=== PATIENT | female | born 1945 | race African-American/Black ===

== ENCOUNTER 2017-02-11 18:49 | Emergency (ER) | payer OTHER ==
[~2017-02-11] VITALS: Ht 160 cm; Wt 80.8 kg
[~2017-02-11 18:49] MED LIST: CENTRUM SILVER1 EAC3 PO; CIPRO500 MG PO; CLARINEX5 MG PO; DILAUDID PO; DILAUDID2 MG PO; FLONASE16 G1 BOTH NARES; HYDROCHLOROTHIA25 MG PO; K-DUR10 MEQ PO; LIDEX 0.05% OIN15 GM TP; LOW DOSE ASPIRI81 M1 PO; METFORMIN HCL500 MG PO; METOPROLOL TAR100 MG PO; OMEPRAZOLE40 M1 PO; PLAVIX75 MG PO; PYRIDIUM200 MG PO; SIMVASTATIN40 MG PO; TORADOL10 MG PO; TRAMADOL HCL50 MG PO
[2017-02-11] MEDS ORDERED: PERCOCET 5/31 TABLET PO (20:00)
[2017-02-11 20:36] VITALS: BP 113/87
== END 2017-02-11 20:36 | disposition home or self-care (01) ==
LOC: EME 18:49
DX: S76.112A Strain of left quadriceps muscle, fascia and tendon, initial encounter (principal); X58.XXXA Exposure to other specified factors, initial encounter; R10.2 Pelvic and perineal pain; I10 Essential (primary) hypertension; E78.5 Hyperlipidemia, unspecified; E11.9 Type 2 diabetes mellitus without complications; Z79.4 Long term (current) use of insulin; Z79.02 Long term (current) use of antithrombotics/antiplatelets; Z79.82 Long term (current) use of aspirin; Z86.73 Personal history of transient ischemic attack (TIA), and cerebral infarction without residual deficits; Z87.891 Personal history of nicotine dependence
CPT/HCPCS: 72170; 99281; 99283

== ENCOUNTER 2017-03-20 09:28 | Emergency (ER) | payer OTHER ==
[~2017-03-20] VITALS: Ht 160 cm; Wt 80.0 kg
[~2017-03-20 09:28] MED LIST changes: +PERCOCET 5/31 TABLET PO
[2017-03-20 09:42] VITALS: BP 139/74
== END 2017-03-20 11:47 | disposition home or self-care (01) ==
LOC: EME 09:28
DX: S93.401A Sprain of unspecified ligament of right ankle, initial encounter (principal); X58.XXXA Exposure to other specified factors, initial encounter; J02.9 Acute pharyngitis, unspecified; I10 Essential (primary) hypertension; E78.5 Hyperlipidemia, unspecified; E11.9 Type 2 diabetes mellitus without complications; Z79.84 Long term (current) use of oral hypoglycemic drugs; Z79.02 Long term (current) use of antithrombotics/antiplatelets; Z79.82 Long term (current) use of aspirin; Z95.5 Presence of coronary angioplasty implant and graft
CPT/HCPCS: 73610; 99281; 99284

== ENCOUNTER 2017-07-08 12:37 | Emergency (ER) | payer OTHER ==
[~2017-07-08] VITALS: Ht 160 cm; Wt 81.4 kg
[2017-07-08] MEDS ORDERED: NITROFURANTOIN100 M3 PO (13:23)
[2017-07-08 13:33] LABS: MCH 30.8 PG (29.0-34.0); MCHC 33.4 G/DL (30.0-36.0); MCV 92.1 FL (83-99); MEAN PLAT.VOLUME 10.1 uM^3 (9.5-12.4); PLATELET COUNT 204 K/uL (156-360); RBC DIS.WIDTH-CV 13.5 % (11.8-14.6); WHITE BLOOD COUNT 8.9 K/uL (4.1-10.2)
[2017-07-08 13:52] LABS: ANION GAP 9 MEQ/L (2-14); CHLORIDE 100 MEQ/L (99-109); POTASSIUM 4.3 MEQ/L (3.7-5.4); SAMPLE HEMOLYSIS CHECK 0; SAMPLE ICTERIC CHECK 0; SAMPLE LIPEMIA CHECK 0; SODIUM 137 MEQ/L (136-147); TOTAL BILIRUBIN 0.9 MG/DL (0.0-1.0)
[2017-07-08 13:58] LABS: ALKALINE PHOSPHATASE 67 IU/L (3-129); GFR ESTIMATE (CALCULATED) > 59 mL/min/; GLUCOSE 201 mg/dL (70-99); UREA NITROGEN (BUN) 17 mg/dL (9-23)
[2017-07-08 15:06] LABS: ADD MIUA? NO; BILIRUBIN NEGATIVE; BLOOD NEGATIVE; COLOR YELLOW ((YELLOW)); GLUCOSE (STRIP) NEGATIVE; KETONES NEGATIVE; LEUKOCYTES NEGATIVE; NITRITE NEGATIVE; PROTEIN (STRIP) NEGATIVE; SPECIFIC GRAVITY 1.015 (1.000-1.030); UCUL ADDED? NO
[2017-07-08 15:32] LABS: LIPASE 25 U/L (1.0-51.0)
[2017-07-08] MEDS ORDERED: TRAMADOL HCL50 MG PO (18:05)
[2017-07-08 18:14] VITALS: BP 156/78
== END 2017-07-08 18:15 | disposition home or self-care (01) ==
LOC: EME 12:37
DX: R10.11 Right upper quadrant pain (principal); R11.2 Nausea with vomiting, unspecified; R19.7 Diarrhea, unspecified; E11.65 Type 2 diabetes mellitus with hyperglycemia; I10 Essential (primary) hypertension; E78.5 Hyperlipidemia, unspecified; I25.2 Old myocardial infarction; K21.9 Gastro-esophageal reflux disease without esophagitis; D64.9 Anemia, unspecified; Z79.02 Long term (current) use of antithrombotics/antiplatelets; Z79.82 Long term (current) use of aspirin; Z79.84 Long term (current) use of oral hypoglycemic drugs; Z88.8 Allergy status to other drugs, medicaments and biological substances
CPT/HCPCS: 74177; 80053; 81003; 83690; 85027; 93005; 99281; 99285; J1200; J2405; J2930; J3010; J7030

== ENCOUNTER 2017-08-29 13:22 | Emergency (ER) | payer OTHER ==
[~2017-08-29] VITALS: Ht 160 cm; Wt 83.4 kg
[~2017-08-29 13:22] MED LIST changes: +NITROFURANTOIN100 M3 PO
[2017-08-29 14:43] LABS: BASOPHIL (%) 0.5 % (0-1); EOSINOPHIL (%) 2.9 % (0-5); EOSINOPHIL COUNT 0.1 K/uL (0-0.3); HEMATOCRIT 34.4 % (36.0-46.0); HEMOGLOBIN 11.7 G/DL (11.9-15.5); IMMATURE GRANULOCYTE (%) 0.2 % (0.0-0.7); LYMPHOCYTE (%) 45.9 % (15-42); MONOCYTE (%) 10.1 % (3-12); MONOCYTE COUNT 0.5 K/uL (0-0.8); NEUTROPHIL (%) 40.4 % (45-76); NEUTROPHIL COUNT 1.8 K/uL (1.8-6.4); PLATELET COUNT 214 K/uL (156-360); RBC DIS.WIDTH-CV 13.3 % (11.8-14.6); RBC DIS.WIDTH-SD 44.5 % (39-53); RED BLOOD COUNT 3.78 M/uL (3.80-5.20); WHITE BLOOD COUNT 4.4 K/uL (4.1-10.2)
[2017-08-29 14:53] LABS: CHLORIDE 104 mEq/L (99-109); POTASSIUM 4.4 mEq/L (3.7-5.4); SODIUM 139 mEq/L (136-147)
[2017-08-29 14:55] LABS: GLUCOSE 127 mg/dL (70-99)
[2017-08-29 14:56] LABS: TOTAL PROTEIN 7.1 g/dL (6.4-8.3)
[2017-08-29 14:57] LABS: TOTAL BILIRUBIN 0.6 mg/dL (0.0-1.0)
[2017-08-29 14:59] LABS: ALKALINE PHOSPHATASE 63 IU/L (3-129); CREATININE 1.2 mg/dL (0.6-1.3); GFR ESTIMATE (CALCULATED) 57 mL/min/
[2017-08-29 15:00] LABS: UREA NITROGEN (BUN) 22 mg/dL (9-23)
[2017-08-29 15:01] LABS: AST (GOT) 13 IU/L (2-34); DIRECT BILIRUBIN 0.2 mg/dL (0.0-0.3)
[2017-08-29 15:02] LABS: ALT (GPT) 11 IU/L (3-49); LIPASE 20 U/L (1.0-51.0)
[2017-08-29 15:55] LABS: APPEARANCE SL.HAZY ((CLEAR)); BILIRUBIN NEGATIVE; BLOOD SMALL; GLUCOSE (STRIP) NEGATIVE; KETONES NEGATIVE; LEUKOCYTES NEGATIVE; PROTEIN (STRIP) 100; SPECIFIC GRAVITY 1.029 (1.000-1.030)
[2017-08-29 15:56] LABS: COLOR ORANGE ((YELLOW))
[2017-08-29 16:14] LABS: BACTERIA 1+ /HPF; EPITHELIAL CELLS 2+ /HPF; MUCUS NONE SEEN /LPF; RED BLOOD CELLS RARE /HPF (0-5); UCUL ADDED? YES
[2017-08-29 16:15] LABS: NITRITE NEGATIVE
[2017-08-29] MEDS ORDERED: KEFLEX500 MG PO (16:46)
[2017-08-29] MEDS ORDERED: PYRIDIUM200 MG PO (16:46)
[2017-08-29] MEDS ORDERED: MOTRIN600 MG PO (16:47)
[2017-08-29] MEDS ORDERED: ULTRACET1 TABLET PO (16:47)
[2017-08-29 16:54] VITALS: BP 147/73
== END 2017-08-29 16:55 | disposition home or self-care (01) ==
LOC: RME 13:22 → EME 13:22 → RME 16:55
PROVIDERS: Physician Assistant
DX: R10.9 Unspecified abdominal pain (principal); R35.0 Frequency of micturition; R30.0 Dysuria; Z87.442 Personal history of urinary calculi; E11.9 Type 2 diabetes mellitus without complications; Z79.84 Long term (current) use of oral hypoglycemic drugs; E78.5 Hyperlipidemia, unspecified; I10 Essential (primary) hypertension; I25.2 Old myocardial infarction; K21.9 Gastro-esophageal reflux disease without esophagitis; Z95.5 Presence of coronary angioplasty implant and graft; Z79.82 Long term (current) use of aspirin; Z88.5 Allergy status to narcotic agent; Z88.2 Allergy status to sulfonamides
CPT/HCPCS: 74176; 80048; 80076; 81003; 83690; 85025; 87077; 87086; 87186; 99281; 99284; J0696; J3010

== ENCOUNTER 2017-08-31 19:04 | Emergency (ER) | payer OTHER ==
[~2017-08-31] VITALS: Ht 160 cm; Wt 82.6 kg
[~2017-08-31 19:04] MED LIST changes: +KEFLEX500 MG PO; +MOTRIN600 MG PO; +ULTRACET1 TABLET PO
[2017-08-31 20:50] LABS: GLUCOSE (STRIP) NEGATIVE
[2017-08-31 20:51] LABS: APPEARANCE HAZY ((CLEAR)); COLOR ORANGE ((YELLOW))
[2017-08-31 21:04] LABS: EPITHELIAL CELLS 3+ /HPF; HYALINE CASTS 0-5 /LPF; MUCUS 1+ /LPF
[2017-08-31 21:05] LABS: RED BLOOD CELLS NONE SEEN /HPF (0-5)
[2017-08-31 21:06] LABS: BACTERIA 2+ /HPF; UCUL ADDED? YES
[2017-08-31 22:00] LABS: HEMATOCRIT 36.5 % (36.0-46.0); HEMOGLOBIN 12.2 G/DL (11.9-15.5); MCH 30.7 PG (29.0-34.0); MCHC 33.4 G/DL (30.0-36.0); MCV 91.7 FL (83-99); PLATELET COUNT 191 K/uL (156-360); RBC DIS.WIDTH-CV 13.4 % (11.8-14.6); RBC DIS.WIDTH-SD 45.6 % (39-53); RED BLOOD COUNT 3.98 M/uL (3.80-5.20); WHITE BLOOD COUNT 4.6 K/uL (4.1-10.2)
[2017-08-31 22:14] LABS: ALBUMIN 4.3 g/dL (3.2-4.8)
[2017-08-31 22:15] LABS: CHLORIDE 101 mEq/L (99-109); SODIUM 136 mEq/L (136-147)
[2017-08-31 22:17] LABS: TOTAL PROTEIN 7.8 g/dL (6.4-8.3)
[2017-08-31 22:18] LABS: GLUCOSE 191 mg/dL (70-99)
[2017-08-31 22:19] LABS: TOTAL BILIRUBIN 0.6 mg/dL (0.0-1.0)
[2017-08-31 22:21] LABS: ALKALINE PHOSPHATASE 80 IU/L (3-129); CREATININE 1.4 mg/dL (0.6-1.3); GFR ESTIMATE (CALCULATED) 48 mL/min/
[2017-08-31 22:22] LABS: AST (GOT) 18 IU/L (2-34); UREA NITROGEN (BUN) 23 mg/dL (9-23)
[2017-08-31 22:24] LABS: ALT (GPT) 13 IU/L (3-49)
[2017-09-01 02:05] VITALS: BP 123/70
== END 2017-09-01 02:05 | disposition home or self-care (01) ==
LOC: RME 19:04 → EME 19:04 → RME 09-01 02:05
PROVIDERS: Physician Assistant Medical
DX: N39.0 Urinary tract infection, site not specified (principal); B96.20 Unspecified Escherichia coli [E. coli] as the cause of diseases classified elsewhere; Z16.12 Extended spectrum beta lactamase (ESBL) resistance; K76.0 Fatty (change of) liver, not elsewhere classified; N28.1 Cyst of kidney, acquired; K57.30 Diverticulosis of large intestine without perforation or abscess without bleeding; M16.11 Unilateral primary osteoarthritis, right hip; I10 Essential (primary) hypertension; E78.5 Hyperlipidemia, unspecified; E11.9 Type 2 diabetes mellitus without complications; Z79.84 Long term (current) use of oral hypoglycemic drugs; Z79.82 Long term (current) use of aspirin; Z79.02 Long term (current) use of antithrombotics/antiplatelets; Z87.440 Personal history of urinary (tract) infections; Z90.710 Acquired absence of both cervix and uterus
CPT/HCPCS: 74176; 80053; 81003; 85027; 87086; 99281; 99285; J0696; J7030

== ENCOUNTER 2018-01-07 09:48 | Observation (INO) | payer OTHER ==
[~2018-01-07] VITALS: Ht 160 cm; Wt 79.0 kg
[~2018-01-07 09:48] MED LIST changes: +GLUCOPHAGE1000 MG PO; -METFORMIN HCL500 MG PO
[2018-01-07 10:11] LABS: HEMATOCRIT 33.6 % (36.0-46.0); HEMOGLOBIN 11.4 G/DL (11.9-15.5); MCH 31.4 PG (29.0-34.0); MCHC 33.9 G/DL (30.0-36.0); MCV 92.6 FL (83-99); PLATELET COUNT 168 K/uL (156-360); RBC DIS.WIDTH-CV 12.9 % (11.8-14.6); RBC DIS.WIDTH-SD 43.6 % (39-53); RED BLOOD COUNT 3.63 M/uL (3.80-5.20); WHITE BLOOD COUNT 8.1 K/uL (4.1-10.2)
[2018-01-07 10:20] LABS: CHLORIDE 102 mEq/L (99-109); POTASSIUM 4.2 mEq/L (3.7-5.4); SODIUM 140 mEq/L (136-147)
[2018-01-07 10:22] LABS: GLUCOSE 266 mg/dL (70-99)
[2018-01-07 10:26] LABS: CREATININE 1.3 mg/dL (0.6-1.3); GFR ESTIMATE (CALCULATED) 52 mL/min/; UREA NITROGEN (BUN) 22 mg/dL (9-23)
[2018-01-07 10:32] LABS: TROP-I INTERPRETATION NEGATIVE; TROPONIN-I < 0.01 ng/mL (0.0-0.30)
[2018-01-07] MEDS ORDERED: MACROBID100 MG PO (11:38)
[2018-01-07 14:37] VITALS: BP 143/63
[2018-01-07 16:30] VITALS: BP 136/62
[2018-01-07 18:25] LABS: TROP-I INTERPRETATION NEGATIVE; TROPONIN-I < 0.01 ng/mL (0.0-0.30)
[2018-01-07 21:17] VITALS: BP 166/71
[2018-01-08 01:34] LABS: TROP-I INTERPRETATION NEGATIVE; TROPONIN-I < 0.01 ng/mL (0.0-0.30)
[2018-01-08 05:03] LABS: HEMATOCRIT 32.4 % (36.0-46.0); HEMOGLOBIN 10.7 G/DL (11.9-15.5); MCH 29.9 PG (29.0-34.0); MCV 90.5 FL (83-99); PLATELET COUNT 169 K/uL (156-360); RBC DIS.WIDTH-CV 12.8 % (11.8-14.6); RBC DIS.WIDTH-SD 42.2 % (39-53); RED BLOOD COUNT 3.58 M/uL (3.80-5.20); WHITE BLOOD COUNT 8.1 K/uL (4.1-10.2)
[2018-01-08 05:57] LABS: CHLORIDE 101 MEQ/L (99-109); GFR ESTIMATE (CALCULATED) > 59 mL/min/; GLUCOSE 198 mg/dL (70-99); POTASSIUM 3.7 MEQ/L (3.7-5.4); SODIUM 139 MEQ/L (136-147); UREA NITROGEN (BUN) 18 mg/dL (9-23)
[2018-01-08 09:00] VITALS: BP 119/56
[2018-01-08 11:45] VITALS: BP 148/71
[2018-01-08 15:55] VITALS: BP 120/62
[2018-01-08] MEDS ORDERED: CEFTIN500 MG PO (19:03)
[2018-01-08 20:21] VITALS: BP 145/66
== END 2018-01-08 21:19 | disposition home or self-care (01) ==
LOC: EME 09:48 → ENRESERV 12:08 → EDOF 12:14 → 4SOUTH 12:14 → ENRESERV 12:21 → 4SOUTH 13:44
PROVIDERS: Emergency Medicine; Internal Medicine; Physician Assistant
DX: R07.89 Other chest pain (principal); R30.0 Dysuria; I10 Essential (primary) hypertension; E11.9 Type 2 diabetes mellitus without complications; N39.0 Urinary tract infection, site not specified; I25.10 Atherosclerotic heart disease of native coronary artery without angina pectoris; I25.2 Old myocardial infarction; E78.5 Hyperlipidemia, unspecified; K44.9 Diaphragmatic hernia without obstruction or gangrene; Z87.891 Personal history of nicotine dependence; Z82.49 Family history of ischemic heart disease and other diseases of the circulatory system; Z82.3 Family history of stroke; Z91.013 Allergy to seafood; Z91.041 Radiographic dye allergy status; Z88.5 Allergy status to narcotic agent; Z88.2 Allergy status to sulfonamides; Z79.82 Long term (current) use of aspirin; Z79.84 Long term (current) use of oral hypoglycemic drugs
CPT/HCPCS: 71046; 76705; 80048; 81003; 82948; 84484; 85027; 85379; 93005; 99281; 99285; G0378; J1644; J1815